=== PATIENT | male | born 1980 | race Caucasian/White ===

== ENCOUNTER 2018-11-30 22:11 | Emergency (ER) | payer SELFPAY ==
[~2018-11-30] VITALS: Ht 180.3 cm; Wt 68.0 kg
[2018-11-30 22:16] VITALS: BP 122/88
== END 2018-12-01 00:07 | disposition left against medical advice (07) ==
LOC: ER 22:11
DX: Z53.21 Procedure and treatment not carried out due to patient leaving prior to being seen by health care provider (principal)